=== PATIENT | male | born 1995 | race Two or more races ===

== ENCOUNTER 2016-12-27 16:16 | Observation (INO) | payer SELFPAY ==
[2016-12-27 16:29] VITALS: BP 136/89; PULSE 90; RESP 18; TEMP 99.4; O2SAT 98
--- NOTE | 2016-12-27 18:24 | ED PDOC ---
HPI: Psych/Substance Abuse Time Seen by Provider: 12/27/16 17:21 Chief Complaint (Nursing): Substance Abuse Chief Complaint (Provider): substance abuse Additional Complaint(s): 21yo M [facility], cocaine an marijuana use. PT with very erratic aggressive behavior in triage and in examining room. PT unwilling to cooperate in ED and is threat to pt safety and self. Past Medical History Reviewed: Historical Data, Nursing Documentation, Vital Signs, Unable To Obtain Vital Signs: Last Vital Signs Temp 99.4 F 12/27/16 16:26 Pulse 90 12/27/16 16:26 Resp 18 12/27/16 16:26 BP 136/89 12/27/16 16:26 Pulse Ox 98 12/27/16 16:26 - Family History Family History: States: Unknown Family Hx - Home Medications Home Medications: Ambulatory Orders Medication Instructions Recorded Unobtainable 12/27/16 - Allergies Allergies/Adverse Reactions: Allergies Allergy/AdvReac Type Severity Reaction Status Date / Time No Known Allergies Allergy Verified 12/27/16 16:26 Review of Systems ROS Statement: Except As Marked, All Systems Reviewed And Found Negative Review Of Systems: ROS cannot be obtained secondary to pt's inabilty to answer questions. Physical Exam - Reviewed Nursing Documentation Reviewed: Yes Vital Signs Reviewed: Yes - Physical Exam Appears: Positive for: No Acute Distress. Negative for: Non-toxic (pt with very agressive behavoir attempting to hurt staff and is an elopment risk) Head Exam: Positive for: ATRAUMATIC, NORMAL INSPECTION, NORMOCEPHALIC Skin: Positive for: Warm Eye Exam: Negative for: PERRL (pinpoint pupuls) Cardiovascular/Chest: Positive for: Regular Rate, Rhythm Respiratory: Positive for: CNT, Normal Breath Sounds Neurologic/Psych: Positive for: Alert - Laboratory Results Result Diagrams: 12/27/16 19:02 12/27/16 19:02 Interpretation Of Abn Labs: elevated wBC could be due to drug use-discussed withMD Trevor Pt is afebrile in ED - ECG O2 Sat by Pulse Oximetry: 98 - Progress ED Course And Treament: Pt requires haldol and ativan with 4point restrains and 1:1 observation due to drug induced psychosis pt will get cbc/cmp and BAL. placed on chronometer repairer. and re-eval ED OBSERVATION Discharge: Yes Date of observation admission: 12/27/16 Time of observation admission: 18:29 - Observation admission statement Patient is being placed in observation because:: acute drug induced psychosis - Goals of Observation Goals of observation are:: sobriety. Disposition - Clinical Impression Clinical Impression: Substance abuse - Patient ED Disposition Is Patient to be Admitted: No Counseled Patient/Family Regarding: Need For Followup - Disposition Disposition: Routine/Home Disposition Time: 20:24 Condition: STABLE
[2016-12-27 19:07] LABS: BASO # 0.1 K/uL (0.0-0.2); BASO % 0.8 % (0.0-2.0); EOS # 0.2 K/uL (0.0-0.7); EOS % 1.2 % (0.0-4.0); LYMPH # 2.1 K/uL (1.0-4.3); LYMPH % 13.5 % (20.0-40.0); MEAN CELL VOLUME 88.4 fl (80.0-94.0); MEAN CORPUSCULAR HEMOGLOBIN 29.4 pg (27.0-31.0); MEAN CORPUSCULAR HGB CONC 33.3 g/dL (33.0-37.0); MONO # 1.8 K/uL (0.0-0.8); MONO % 11.5 % (0.0-10.0); NEUT # 11.3 K/uL (1.8-7.0); RED CELL DISTRIBUTION WIDTH 13.9 % (11.5-14.5); WHITE BLOOD COUNT 15.5 K/uL (4.8-10.8)
[2016-12-27 19:23] LABS: ALB/GLOB RATIO 1.5 (1.0-2.1); ALCOHOL SERUM < 10 mg/dl (0-10); ALKALINE PHOSPHATASE 51 U/L (38-126); ALT/SGPT 37 U/L (21-72); AST/SGOT 27 U/L (17-59); BILIRUBIN,TOTAL 0.7 mg/dl (0.2-1.3); BLOOD UREA NITROGEN 17 mg/dl (9-20); CALCIUM 9.4 mg/dL (8.4-10.2); CARBON DIOXIDE 27 mmol/L (22-30); CHLORIDE 103 mmol/L (98-107); GFR AFRICAN-AMERICAN > 60; GLUCOSE,RANDOM 97 mg/dL (75-110); POTASSIUM 3.8 MMOL/L (3.6-5.0); SODIUM 140 mmol/l (132-148); TOTAL PROTEIN 7.2 G/DL (6.3-8.2)
--- NOTE | 2016-12-27 23:26 | ED PDOC ---
- Laboratory Results Result Diagrams: 12/27/16 19:02 12/27/16 19:02 - ECG O2 Sat by Pulse Oximetry: 98 Pulse Ox Interpretation: Normal Medical Decision Making Medical Decision Making: Pt was endorsed pending sobriety. 2325 - Pt with clear speech and steady gait. Pt states he took PCP, marijuana and xanax. Disposition - Clinical Impression Clinical Impression: Substance abuse - POA Present On Arrival: None - Disposition Disposition: Routine/Home Disposition Time: 23:27 Condition: STABLE
== END 2016-12-27 23:36 | disposition home or self-care (01) ==
LOC: H.ER 16:16 → H.EROBSV 18:34
PROVIDERS: ADMIT Emergency Medicine; ATTEND Emergency Medicine
DX: F19.959 Other psychoactive substance use, unspecified with psychoactive substance-induced psychotic disorder, unspecified (principal)
CPT/HCPCS: 36415; 80053; 85025; 96372; 99284; G0378; G0480; J1630; J2060